=== PATIENT | male | born 1950 | race Caucasian/White ===

== ENCOUNTER 2018-04-15 11:22 | Outpatient (CLI) | payer MEDICARE ==
--- NOTE | 2018-04-15 14:10 | Ultrasound Report ---
Reason: AMAUROSIS FUGAX,RIGHT Procedure Date: 04/15/2018 Accession Number: [id number] / [id number] Procedure: US - Carotid Doppler Complete CPT Code: FULL RESULT: EXAM: BILATERAL CAROTID AND VERTEBRAL ARTERY DUPLEX DOPPLER ULTRASOUND: EXAM DATE: 04/15/2018 12:23 PM CLINICAL HISTORY: Amaurosis fugax, right. COMPARISON: None. TECHNIQUE: Grayscale imaging, color Doppler, and duplex spectral Doppler were used to evaluate the carotid and vertebral arteries bilaterally. Static images were obtained. FINDINGS: No significant plaque is identified in the right or left common or internal carotid arteries. Normal antegrade flow is present in bilateral vertebral arteries. VELOCITIES (cm/sec): VELOCITIES: Right: CCA Mid: PSV 127 cm/sec. CCA Dist: PSV 89 cm/sec. ICA Prox: PSV 78 cm/sec, EDV 21 cm/sec. ICA Mid: PSV 103 cm/sec, EDV 33 cm/sec. ICA Dist: PSV 91 cm/sec, EDV 34 cm/sec. ECA: PSV 141 cm/sec. Vertebral Artery: PSV 61 cm/sec. RVA flow direction: xAntegrade. ICA/CCA Ratio: 0.81. Left: CCA Mid: PSV 108 cm/sec. CCA Dist: PSV 90 cm/sec. ICA Prox: PSV 72 cm/sec, EDV 27 cm/sec. ICA Mid: PSV 94 cm/sec, EDV 34 cm/sec. ICA Dist: PSV 80 cm/sec, EDV 28 cm/sec. ECA: PSV 94 cm/sec. Vertebral Artery: PSV 57 cm/sec. LVA flow direction: xAntegrade. ICA/CCA Ratio: 0.87. ICA diameter stenosis: Right: <50% by velocity and <70% by NASCET criteria. Left: <50% by velocity and <70% by NASCET criteria. IMPRESSION: 1. No significant bilateral carotid artery plaquing. 2. In the right carotid artery there are no elevated carotid artery velocities to suggest hemodynamically significant stenosis. 3. In the left carotid artery there are no elevated carotid artery velocities to suggest hemodynamically significant stenosis. 4. Normal antegrade flow is present in bilateral vertebral arteries. General Recommendations: Stenosis =50% ICA - Follow-up ultrasound 6-12 months Stenosis <50% ICA - High Risk Patient with plaque - Follow-up ultrasound 1-2 years Normal Study but High Risk Patient - Follow-up ultrasound 3-5 years Management recommendations and diagnostic criteria are based on current IAC endorsed standards in Carotid Artery Stenosis: Grayscale and Doppler Ultrasound Diagnosis. Validated velocity measurements with angiographic measurements and velocity criteria are extrapolated from diameter data as defined by the Society of Radiologists in Ultrasound Consensus Conference Radiology 2003; 229;340-346. RADIA
== END 2018-04-15 11:23 | disposition home or self-care (01) ==
LOC: DI 11:22
PROVIDERS: ATTEND Internal Medicine
DX: G45.3 Amaurosis fugax (principal)
CPT/HCPCS: 93880

== ENCOUNTER 2018-04-24 12:56 | Outpatient (CLI) | payer MEDICARE ==
--- NOTE | 2018-04-24 23:51 | MRI Report ---
Reason: AMAUROSIS FUGAX,RIGHT Procedure Date: 04/24/2018 Accession Number: [id number] / [id number] Procedure: MRI - Brain W/O CPT Code: FULL RESULT: EXAM: MRI BRAIN WITHOUT CONTRAST EXAM DATE: 04/24/2018 01:58 PM. CLINICAL HISTORY: 2 episodes of right eye vision loss lasting several minutes. COMPARISON: Prior CT study head 03/28/2018. TECHNIQUE: Multiplanar, multisequence T1-weighted and fluid-sensitive MR sequences of the brain were performed. Sequences optimized for routine evaluation. Other: None. IV Contrast: None. Findings: Relevant images are indicated (image number, series number). There is no acute/subacute ischemic change in the brain. Gradient echo imaging demonstrates no significant hemosiderin deposition present in the brain. There is no hemorrhage, mass or midline shift. Basal cisterns, bilateral IACs, bilateral Meckel's caves are clear. Orbital contents are unremarkable. Paranasal sinuses, mastoid air cells demonstrate only minimal left maxillary sinus polypoid mucosal thickening, and trivial mucosal thickening right sphenoid sinus. No significant cortical atrophy, ventricles were not dilated. Normal expected vascular flow voids of the major arteries and draining veins. Mild scattered periventricular, some vertical white matter disease. Midbrain unremarkable. Partial empty sella. Craniocervical junction, and limited evaluation of upper cervical cord are unremarkable. Extraocular muscles, optic nerves, orbital apex, optic chiasm negative. Impressions: 1. No acute/subacute ischemic change in the brain. 2. Mild brain atrophy. 3. Mild scattered nonspecific white matter disease most likely related to chronic small vessel ischemic disease. 4. Remaining study unremarkable as detailed. RADIA
== END 2018-04-24 12:57 | disposition home or self-care (01) ==
LOC: DI 12:56
PROVIDERS: ATTEND Internal Medicine
DX: G31.9 Degenerative disease of nervous system, unspecified (principal); R90.82 White matter disease, unspecified
CPT/HCPCS: 70551

== ENCOUNTER 2018-07-02 10:44 | Day surgery (SDC) | payer MEDICARE ==
[2018-07-02] MEDS ORDERED: LACTATED RINGERS 1,000 ML IV ONE (10:52)
[2018-07-02] MEDS ORDERED: fentaNYL 250 MCG/5 ML VIAL IVP ONE (12:45)
[2018-07-02] MEDS ORDERED: MIDAZOLAM 2 MG/2 ML VIAL IVP ONE (12:45)
[2018-07-02 14:20] VITALS: BP 99/62
== END 2018-07-02 10:45 | disposition home or self-care (01) ==
LOC: SDS 10:44
PROVIDERS: ATTEND Internal Medicine Gastroenterology
PROC: 0DBL8ZZ Excision of Transverse Colon, Via Natural or Artificial Opening Endoscopic (ICD-10-PCS; principal; 2018-07-02 12:00)
DX: Z12.11 Encounter for screening for malignant neoplasm of colon (principal); D12.3 Benign neoplasm of transverse colon; Z80.0 Family history of malignant neoplasm of digestive organs; G47.33 Obstructive sleep apnea (adult) (pediatric); Z87.891 Personal history of nicotine dependence; R07.89 Other chest pain; R15.9 Full incontinence of feces
CPT/HCPCS: 45380; J3010; J7120

== ENCOUNTER 2018-07-31 07:21 | Outpatient (CLI) | payer MEDICARE ==
[2018-07-31 11:07] LABS: ALBUMIN/GLOBULIN RATIO 1.5 (1.0-2.2); ALKALINE PHOSPHATASE 54 IU/L (42-121); ALT ALANINE AMINOTRANSFERASE 43 IU/L (10-60); AST ASPARTATE AMINOTRANSFERASE 28 IU/L (10-42); BILIRUBIN,TOTAL 1.2 mg/dL (0.2-1.0); BUN - BLOOD UREA NITROGEN 20 mg/dL (6-20); CALCIUM 8.7 mg/dL (8.5-10.3); CARBON DIOXIDE - CO2 29 mmol/L (21-32); CHLORIDE 105 mmol/L (101-111); CHOL/HDL RATIO 3.6 (<5.0); CHOLESTEROL 151 mg/dL; CREATININE 0.8 mg/dL (0.6-1.2); GFR - MDRD 96 (>89); GLUCOSE 102 mg/dL (70-100); HDL CHOLESTEROL 42 mg/dL; LDL CHOLESTEROL,CALCULATED 87 mg/dL; LDL/HDL RATIO 2.1 (<3.6); SODIUM 140 mmol/L (135-145); TOTAL PROTEIN 6.6 g/dL (6.7-8.2); VLDL CHOLESTEROL 22 mg/dL
== END 2018-07-31 07:22 | disposition home or self-care (01) ==
LOC: LAB.F 07:21
PROVIDERS: ATTEND Internal Medicine
DX: E78.5 Hyperlipidemia, unspecified (principal)
CPT/HCPCS: 36415; 80053; 80061; 83721

== ENCOUNTER 2019-05-17 13:44 | Outpatient (CLI) | payer MEDICARE ==
[2019-05-18 00:14] VITALS: BP 129/63
--- NOTE | 2019-05-18 00:14 | SLEEP CARE CONSULTATION ---
Information from patient questionnaire entered by Hazel Beckett. I have reviewed and concur with the information entered by Hazel Beckett. This document represents the service I personally performed and the decisions made by me, Evy Wallace MD, [facility]. History of Present Illness Reason for Visit: New patient, Previously diagnosed sleep apnea, sleep apnea on CPAP therapy Chief Complaint: reports: Other (update supplies) Duration of Symptoms: since 2002 Usual bedtime: 5776-2500 Time it takes to fall asleep: 1 minute Snores at night: Yes Observed to quit breathing while asleep: Yes Sleeps alone due to snoring: No Number of times waking at night: 3 Reasons for waking at night: reports: Bathroom Toss, Turn, or Twitch while sleeping: No Recalls having dreams: Yes Usually gets out of bed at: [id number] Feels refreshed in the morning: Yes Morning headache: No Sleepy or fatigued during the day: No Ever fallen asleep while driving: No Takes day naps: Yes Dreams during day naps: No Prior sleep studies: Yes Year and Where: 1997 & 2007 Additional HPI information: I had the pleasure of seeing Mr. Beckett today regarding obstructive sleep apnea- hypopnea. As you know, he is a 69 year old gentleman who was originally diagnosed with the sleep-disordered breathing in [place] in 1997. Then he had a home sleep apnea test (HSAT) with [facility] also in [place]. The results are not available. He was prescribed a CPAP device set at 5.5 20 cmH2O. He uses the Respironics REMstar Auto CPAP every night and all night. The compliance data show usage in 143 out of the past 180 nights, averaging 6 hours a night. The residual AHI is 1.7 and average time in large leak per day is 23 seconds. He wears a ResMed FX nasal mask which is now very old and disintegrating. He last got supplies from [facility] in [place]. He finds the treatment very beneficial. CPAP Compliance Data - Data Reviewed with Patient Average duration of nightly device use: 5h 58m Compliance rate %: 75 Current pressure setting (cmH2O): 5.5-20 Humidity settin Average residual AHI: 1.7 Average large leak: 23s Subjective Initial [place] Sleepiness Scale score: 4 Social History The patient's occupation is retired. Patient is and lives in [place]. Have you smoked in the past 12 months: No Cigarettes per day (20/pack): 20 Years of smokin Quit date: 1984 Smoking Pack Years: 12.0 Alcohol use: No Caffeine use: Yes Caffeine amount and frequency: 1/day Family History Family history of sleep disordered breathing: No Allergies and Home Medications Drug allergies reviewed: Yes (NKDA) Home medication list reviewed: Yes (Lipitor, flonase, aspirin) Review of Systems Cardiovascular: denies: high blood pressure, palpitations, chest pain, irregular heart rate or pulse, leg or foot swelling, have to sleep sitting up, other Respiratory: denies: shortness of breath, wheeze, sputum production, chronic cough, other Gastrointestinal: denies: heartburn, difficulty swallowing, nausea, vomitting, diarrhea, abdominal pain, other Urinary: denies: incontinence, frequency, urgency, impotence, other Neurological: denies: headaches, seizure, head trauma, disorientation, speech dysfunction, gait or balance problems, fainting or unconsciousness, other Psychiatric: denies: Attention Deficit Hyperactivity, anxiety, depression, mood disorder, claustrophobia, other Ear/Nose/Throat: denies: nasal congestion, sinus problems, nose bleeds, dry mouth/throat, hoarseness, injury to nose, tonsillectomy, wisdom teeth removed, other Endocrine: denies: thyroid disease, history of goiter, sluggishness, too hot or cold, excessive thirst, increased appetite, increased urination, unexplained weakness, other Musculoskeletal: reports: back pain Immunologic: reports: itching Physical Exam Vital signs obtained and entered by: Dr. Wallace Blood Pressure: 129/63 Cuff size: regular Heart Rate: 67 O2 Saturation: 97 Height: 5 ft 11 in Weight: 202 lb Body Mass Index: 28.1 BMI Classification: Overweight Neck circumference: 15.5 Mood/affect: Normal HEENT: No craniofacial malformation Nostrils: patent to airflow Turbinates: normal Septum: midline Mouth and throat: narrow oropharynx Soft palate: long Hard palate: normal Uvula: normal Uvula visualization: 50% Mallampati Class II Tongue: normal in size Tonsils: small Chin and jaw: normal size and position Neck: Lymphadenopathy Heart: regular rate and rhythm Lungs: clear bilaterally Abdomen: soft, non-tender Extremities: no edema or clubbing Neurologic: intact, no focal deficits Impression and Plan IMPRESSION: 1. Obstructive Sleep Apnea-Hypopnea Syndrome, as previously diagnosed but unknown severity. The patient has had good treatment compliance. The current pressure setting appears effective and comfortable. The patient experiences improvement on the treatment. Narrow oropharynx and obesity are common predisposing factors for obstructive sleep apnea-hypopnea syndrome. Pathophysiology of sleep-disordered breathing was discussed. Because the CPAP is now older than the useful life of 5 years, I will order the patient a new one and make it an autoCPAP set between 5 and 10 cmH2O. Plan: 1. Prescription made for an autoCPAP, heated humidifier, and related supplies. I recommend he try newer masks, e.g. Respironics DreamWear nasal cushion mask and ResGnzo N30i mask. 2. Avoid long distance driving or when feeling sleepy. 3. Avoid alcohol, sedative and muscle relaxant around bedtime. 4. Return for follow up after one month on the new machine. I spent 100% of this visit face to face with the patient with greater than 50% of this was spent time counseling the patient and coordination of care.
== END 2019-05-17 13:45 | disposition home or self-care (01) ==
LOC: SC 13:44
PROVIDERS: ATTEND Internal Medicine Pulmonary Disease
DX: G47.33 Obstructive sleep apnea (adult) (pediatric) (principal)
CPT/HCPCS: 99203; G0463; 99212

== ENCOUNTER 2019-09-15 13:02 | Outpatient (CLI) | payer MEDICARE ==
--- NOTE | 2019-09-15 12:03 | SLEEP CARE CONSULTATION ---
Information from patient questionnaire entered by Roslyn Mccoy. I have reviewed and concur with the information entered by Roslyn Mccoy. This document represents the service I personally performed and the decisions made by me, Lona Andrea, RN, MSN, TRAVEL CLERK. History of Present Illness Service Date and Time: 09/15/2019 1130 Previous diagnosis: Mild, Obstructive Sleep Apnea-Hypopnea Syndrome AHI: 10.7 (in 2013) Reason for follow up: first compliance after device update Equipment type: CPAP Equipment obtained from: [facility] (Counts include 234 beds at the [facility] / getting supplies as needed.) Mask style: Nasal pillows Mask brand: Resmed Backup mask available: Yes (old style ) Last cushion change: 1 month ago Prior sleep studies: Yes Year and Where: 2013 - [facility] in [place], [place] CPAP Compliance Data - Data Reviewed with Patient Average duration of nightly device use: 6.75 Compliance rate %: 97 Current pressure setting (cmH2O): 5-10 Humidity setting: auto Heated hose settin degrees Average residual AHI: 2.1 Average large leak: zero Subjective Patient concerns: reports: nasal congestion (noted nasal obstruction on each huffman with position ). denies: aerophagia, mask discomfort, air blowing in eyes, mask leak noise, condensation in mask/hose (occasionally dry mild mouth when opens mouth ), dry mouth, nose, throat (dry mouth if opens mouth during sleep ), epistaxis Observed to snore while using device: No Current pressure setting perceived as: comfortable On therapy, patient: reports: sleeping better (less sleep disruption and dreaming more ), awakening more refreshed. denies: drowsiness while driving Initial [place] Sleepiness Scale score: 4 (in 2019) Allergies and Home Medications Home medication list reviewed: No (no changes) Review of Systems Review of systems same as previous: Yes Physical Exam Height: 5 ft 11 in Weight: 194 lb Weight change since last visit: gained 4 pounds Body Mass Index: 27.0 BMI Classification: Overweight Impression and Plan 1. Obstructive Sleep Apnea-Hypopnea Syndrome, mild , with good treatment compliance and good apnea control. On CPAP therapy, the patient has better sleep quality. Patient is pleased with benefit of treatment. To reduce use of water, the patient can reduce his heated hose. Further discussion reflected that the patient has seasonal allergies with nasal congestion. Nasal congestion can be reduced with increasing the CPAP humidity. The heated hose can be adjusted higher if condensation with higher humidity setting. Saline nasal spray sample can also be used prior to CPAP to clear nasal secretions and wash off any nasal allergens to facilitate nasal breathing. In addition, a steamy shower before bed will often assist nasal drainage. Patient asked about the [place] and this is a good treatment if above methods are insufficient and if done properly. Patient has gained weight and would like to lose 14 pounds. Currently patients BMI is 27 and is over weight. I counseled patient how obesity increases the risk of apnea, CPAP pressure requirements and overall health risks especially cardiovascular and diabetes. Thus patient is advised to lose some weight. A diet consultation can be helpful in achieving optimal weight loss goals if needed. The patient's CPAP pressure range should accommodate some weight loss. Symptoms to report for additional pressure adjustment discussed. Patient advised that he can discuss further with his PCP. Patient's apnea severity and rationale for treatment to reduce apnea, improve sleep quality and reduce hypertension, cardiovascular and cerebrovascular events was reviewed. * Continue auto CPAP pressure at 5-10 cmH2O * Implement methods to reduce nasal congestion. * Notify me if snoring with mask or feeling that the pressure is too much or too little * Attempt to lose some weight * Call this office if any problems using CPAP * Return for follow up in 1 year , or sooner if concerns arise Visit Type: Telehealth Video (to reduce risk of Covid 19 exposure) Patient Location: Home Location of Provider: Home Patient agrees and consents to this telehealth visit type: Yes Patient agrees to have their insurance billed: Yes Time Spent with Patient (minutes): 21 Provider Statement: I spent 100% of the Telehealth Video Call with the patient with greater than 50% spent counseling the patient and coordination of care.
== END 2019-09-15 13:03 | disposition home or self-care (01) ==
LOC: SC 13:02
PROVIDERS: ATTEND Nurse Practitioner Family
DX: G47.33 Obstructive sleep apnea (adult) (pediatric) (principal); E66.3 Overweight; Z68.27 Body mass index [BMI] 27.0-27.9, adult

== ENCOUNTER 2021-05-09 08:53 | Outpatient (CLI) | payer MEDICARE ==
--- NOTE | 2021-05-09 09:42 | SLEEP CARE CONSULTATION ---
Information from patient questionnaire entered by Cindy Keys MA. I have reviewed and concur with the information entered by Cindy Keys MA. This document represents the service I personally performed and the decisions made by , Maria L Saul ARNP. History of Present Illness Service Date and Time: 05/09/2021 0853 Previous diagnosis: Mild, Obstructive Sleep Apnea-Hypopnea Syndrome AHI: 10.7 (in 2013) Reason for follow up: annual (LAST SEEN 08/2019) Equipment type: CPAP Equipment obtained from: [facility] (getting supplies as needed) Mask style: Nasal Mask brand: Resmed Backup mask available: Yes (old mask) Last cushion change: 4 days ago Prior sleep studies: Yes Year and Where: 2013 - [facility] in [facility] additional information: IRA MARINO was diagnosed to have mild, AHI 10.7, obstructive sleep apnea- hypopnea syndrome and returned today for CPAP therapy annual follow-up. Sleep Study - Results Prior sleep studies: Yes Year and Where: 2013 - [facility] in [place], [place] CPAP Compliance Data - Data Reviewed with Patient Average duration of nightly device use: 7 HOURS 19 MINUTES Compliance rate %: 67 Current pressure setting (cmH2O): 5-10 Average residual AHI: 2.7 Central apnea: 1.3 Obstructive apnea: 11 Subjective Missed days of use due to: reports: mask issues, travel Patient concerns: reports: dry mouth, nose, throat (dry mouth and throat). denies: aerophagia, mask discomfort, air blowing in eyes, mask leak noise, condensation in mask/hose, nasal congestion, epistaxis, other Observed to snore while using device: No Current pressure setting perceived as: comfortable On therapy, patient: reports: sleeping better, awakening more refreshed, being more awake and alert during the day, more rested overall. denies: drowsiness while driving Initial [place] Sleepiness Scale score: 4 (in 2019) Current [place] Sleepiness Scale score: 5 (2021) Allergies and Home Medications Home medication list reviewed: Yes Allergy and home medication list: Lipitor Flonase Low dose aspirin Review of Systems Review of systems same as previous: Yes (no changes) Physical Exam Vital signs obtained and entered by: Alexa RAMÍREZ Blood Pressure: 134/90 (RIGHT, PULSE 63) Heart Rate: 67 O2 Saturation: 97 (PAPER MASK) Height: 5 ft 11 in Weight: 186 lb (W/O CLOTHES) Weight change since last visit: 8 lb loss Body Mass Index: 25.9 BMI Classification: Overweight Impression and Plan 1. Obstructive Sleep Apnea-Hypopnea Syndrome, mild, with fair treatment compliance and good apnea control. On CPAP therapy, the patient has better sleep quality and is more rested overall. Patient has not been using his device due to the severe dry throat he has been getting recently with its use. He was using it very well prior to having this issue. He comes in asking for a way to use his CPAP without getting the dry mouth and throat. Oral dryness can be reduced by adjusting humidity setting higher or heated hose lower or by adjusting both se ttings. Verbal instructions given on how to change humidity and heated hose settings with rationale explaining why to change. He was also advised to try a chin strap or possibly a full face mask. I showed him a ResMed AirFit F30i mask and he thought that might work for him. I will write for a mask refitting to try this mask. Because his compliance is down, I will have him follow up in 1-2 months to recheck this and see how he is doing with the new mask. Patient has lost weight. Currently patients BMI is 25.9. Obesity increases the risk of apnea, CPAP pressure requirements and overall health risks especially cardiovascular and diabetes. Thus patient is advised to lose weight. Weight loss can be done with reducing portion size, reducing refined foods and balancing content with vegetables, fruit and whole grain foods. In addition, patient encouraged to get regular exercise. The patient's CPAP pressure range should accommodate some weight loss. Symptoms to report for additional pressure adjustment discussed. Patient was encouraged to lose weight for their overall health and to reduce apneas. Patient's apnea severity and rationale for treatment to reduce apnea, improve sleep quality and reduce cardiovascular and cerebrovascular events was reviewed. * Continue auto CPAP pressure at 5-10 cmH2O * Mask refitting for AirFit F30i full face mask * Notify me if snoring with mask or feeling that the pressure is too much or too little * Attempt to lose weight * Call this office if any problems using CPAP * Return for follow up in 1-2 months, or sooner if concerns arise Counseling Topics: Spare mask, Weight loss health impact Visit Type: In Office Time Spent with Patient (minutes): 25 Provider Statement: I spent 100% of the Face to Face Visit with the patient with greater than 50% spent counseling the patient and coordination of care.
[2021-05-09 09:43] VITALS: BP 134/90
== END 2021-05-09 08:54 | disposition home or self-care (01) ==
LOC: SC 08:53
PROVIDERS: ATTEND Nurse Practitioner Family
DX: G47.33 Obstructive sleep apnea (adult) (pediatric) (principal)
CPT/HCPCS: 99213; G0463; 99212

== ENCOUNTER 2021-06-20 09:00 | Outpatient (CLI) | payer MEDICARE ==
--- NOTE | 2021-06-20 09:17 | SLEEP CARE CONSULTATION ---
Information from patient questionnaire entered by Cindy Keys MA. I have reviewed and concur with the information entered by Cindy Keys MA. This document represents the service I personally performed and the decisions made by , Maria L Saul ARNP. History of Present Illness Service Date and Time: 06/20/2021 0900 Previous diagnosis: Mild, Obstructive Sleep Apnea-Hypopnea Syndrome AHI: 10.7 (in 2013) Reason for follow up: other (6 WEEKS, MASK REFITTING, ) Equipment type: CPAP Equipment obtained from: [facility] (getting supplies as needed) Mask style: Nasal pillows Backup mask available: Yes (old mask) Prior sleep studies: Yes Year and Where: 2013 - [facility] in [facility] additional information: IRA MARINO was diagnosed to have mild, AHI 10.7, obstructive sleep apnea- hypopnea syndrome and returns via video telehealth visit today for CPAP therapy 6 week follow-up. Questions about mask re-fitting. Sleep Study - Results Prior sleep studies: Yes Year and Where: 2013 - [facility] in [place], [place] CPAP Compliance Data - Data Reviewed with Patient Average duration of nightly device use: 7 HOURS 21 MINUTES Compliance rate %: 73 Current pressure setting (cmH2O): 5-10 Average residual AHI: 2.7 Central apnea: 1.3 Obstructive apnea: 1.2 Average large leak: 24.8 Subjective Missed days of use due to: reports: travel (went to [place]) Patient concerns: reports: dry mouth, nose, throat. denies: aerophagia, mask discomfort, air blowing in eyes, mask leak noise, condensation in mask/hose, nasal congestion, epistaxis Observed to snore while using device: No Current pressure setting perceived as: comfortable On therapy, patient: reports: sleeping better, awakening more refreshed, being more awake and alert during the day, more rested overall. denies: drowsiness while driving Initial [place] Sleepiness Scale score: 4 (in 2019) Current [place] Sleepiness Scale score: 4 Allergies and Home Medications Home medication list reviewed: Yes (no changes) Allergy and home medication list: Allergies No Known Drug Allergies Allergy (Verified 03/28/18 10:38) Review of Systems Review of systems same as previous: Yes (no changes) Physical Exam Vital signs obtained and entered by: Telehealth visit Height: 5 ft 11 in Impression and Plan 1. Obstructive Sleep Apnea-Hypopnea Syndrome, mild, with good treatment co mpliance and good apnea control. On CPAP therapy, the patient has better sleep quality and is more rested overall. Patient just wanted to touch base today. He discussed the mask change with [facility] and decided against the full face mask. He states he wants to continue with the gel pillows mask because it is comfortable and works well for him. He did go on vacation to [facility] and did not take his machine with him. He continued CPAP use when he returned and is still in compliance. Patient is happy with current CPAP pressure, states it is comfortable and he has significant improvement of his sleep apnea. Patient's apnea severity and rationale for treatment to reduce apnea, improve sleep quality and reduce cardiovascular and cerebrovascular events was reviewed. Patient was encouraged to try to lose weight as needed in order to get to a healthy weight for his overall health and to reduce apneas. * Continue auto CPAP pressure at 5-10 cmH2O * Notify me if snoring with mask or feeling that the pressure is too much or too little * Attempt to lose weight * Call this office if any problems using CPAP * Return for follow up in 1 year, or sooner if concerns arise Counseling Topics: Spare mask, Weight loss health impact Visit Type: Telehealth Video Video Type: VSee Patient Location: Home Location of Provider: Office Patient agrees and consents to this telehealth visit type: Yes Patient agrees to have their insurance billed: Yes Time Spent with Patient (minutes): 16 Provider Statement: I spent 100% of the Telehealth Video Call with the patient with greater than 50% spent counseling the patient and coordination of care.
== END 2021-06-20 09:01 | disposition home or self-care (01) ==
LOC: SC 09:00
PROVIDERS: ATTEND Nurse Practitioner Family
DX: G47.33 Obstructive sleep apnea (adult) (pediatric) (principal)